=== PATIENT | female | born 1985 | race Caucasian/White ===

== ENCOUNTER 2019-03-19 11:53 | Emergency (ER) | payer MEDICAID ==
[~2019-03-19] VITALS: Ht 162.6 cm; Wt 100.0 kg
[2019-03-19 12:16] VITALS: BP 151/93
[2019-03-19] MEDS ORDERED: LORAZEPAM 0.5MG TABLET PO ONE (15:15)
== END 2019-03-19 15:37 | disposition home or self-care (01) ==
LOC: ER 12:12
DX: F41.9 Anxiety disorder, unspecified (principal); E11.9 Type 2 diabetes mellitus without complications; Z76.5 Malingerer [conscious simulation]
CPT/HCPCS: 99282; 99284

== ENCOUNTER 2019-07-23 22:13 | Emergency (ER) | payer MEDICAID ==
[~2019-07-23] VITALS: Ht 170.2 cm; Wt 90.0 kg
[2019-07-23 22:15] VITALS: BP 110/66
== END 2019-07-24 01:00 | disposition left against medical advice (07) ==
LOC: ER 22:13
DX: Z53.21 Procedure and treatment not carried out due to patient leaving prior to being seen by health care provider (principal)

== ENCOUNTER 2019-07-25 10:22 | Emergency (ER) | payer MEDICAID ==
[~2019-07-25] VITALS: Ht 165.1 cm; Wt 81.0 kg
[2019-07-25] MEDS ORDERED: SODIUM CHLORIDE 0.9% 1,000 ML IV ONE (10:50)
[2019-07-25] MEDS ORDERED: KETOROLAC 30MG/ML VIAL IV STA (10:50)
[2019-07-25] MEDS ORDERED: ONDANSETRON HCL 4MG/2ML INJ IV STA (10:50)
[2019-07-25] MEDS ORDERED: LORAZEPAM 2MG/ML CPJ IV ONE (11:00)
[2019-07-25 11:31] LABS: BASOPHILS % 0.3 % (0.0-2.0); HEMATOCRIT. 34.7 % (36.0-48.0); HEMOGLOBIN. 11.6 g/dL (12.0-16.0); LYMPHOCYTES % 14.2 % (20.0-50.0); MEAN CORPUSCULAR HEMOGLOBIN 27.4 pg (28.0-32.0); MEAN PLATELET VOLUME 7.1 fl (7.4-10.4); MONOCYTES % 3.5 % (2.0-8.0); PLATELET 439 x1000/uL (130-400); RED BLOOD CELL COUNT 4.24 mill/uL (4.2-5.4); RED CELL DISTRIBUTION WIDTH 15.7 % (11.6-14.6)
[2019-07-25 11:39] LABS: CHLORIDE 106 mEq/L (98-107); PROTHROMBIN TIME 10.2 sec (9.6-11.0)
[2019-07-25 11:44] LABS: ETHANOL BLOOD 269 mg/dL
[2019-07-25] MEDS ORDERED: CHLORDIAZEPOXIDE 25MG CAPSULE PO ONE (13:15)
[2019-07-25] MEDS ORDERED: LORAZEPAM 1MG TABLET PO ONE (13:30)
[2019-07-25 15:46] VITALS: BP 156/72
== END 2019-07-25 15:48 | disposition home or self-care (01) ==
LOC: ER 10:22
DX: R10.11 Right upper quadrant pain (principal); F10.129 Alcohol abuse with intoxication, unspecified; Y90.8 Blood alcohol level of 240 mg/100 ml or more; R03.0 Elevated blood-pressure reading, without diagnosis of hypertension
CPT/HCPCS: 36415; 76705; 80053; 80320; 83690; 85025; 85610; 96361; 96374; 96375; 99284; J1885; J2060; J2405; J7030; G0480

== ENCOUNTER 2020-06-05 14:11 | Emergency (ER) | payer MEDICAID ==
[~2020-06-05] VITALS: Ht 165.1 cm; Wt 80.0 kg
[2020-06-05] MEDS ORDERED: SODIUM CHLORIDE 0.9% 1,000 ML IV ONE (14:54)
[2020-06-05 15:25] LABS: BASOPHILS % 0.1 % (0.0-2.0); EOSINOPHILS % 0.1 % (0.0-5.0); HEMATOCRIT. 40.2 % (36.0-48.0); HEMOGLOBIN. 13.6 g/dL (12.0-16.0); LYMPHOCYTES % 21.3 % (20.0-50.0); MEAN CORPUSCULAR HEMOGLOBIN 29.4 pg (28.0-32.0); MEAN CORPUSCULAR VOLUME 86.9 fL (81.0-99.0); MEAN PLATELET VOLUME 6.8 fl (7.4-10.4); NEUTROPHILS % 76.5 % (40.0-76.0); PLATELET 413 x1000/uL (130-400); RED BLOOD CELL COUNT 4.63 mill/uL (4.2-5.4); RED CELL DISTRIBUTION WIDTH 13.4 % (11.6-14.6)
[2020-06-05 15:29] LABS: CHLORIDE 109 mEq/L (98-107)
[2020-06-05 15:43] LABS: ETHANOL BLOOD 379 mg/dL
[2020-06-05 15:49] LABS: HCG SCREEN NEGATIVE
[2020-06-05 16:36] LABS: CLARITY URINE TURBID (CLEAR); COLOR URINE YELLOW (YELLOW); KETONES URINE NEGATIVE (NEGATIVE); LEUKOCYTE ESTERASE URINE TRACE (NEGATIVE); NITRITE URINE NEGATIVE (NEGATIVE); OCCULT BLOOD URINE 2+ (NEGATIVE); PROTEIN URINE TRACE (NEGATIVE); SPECIFIC GRAVITY URINE 1.013 (1.005-1.030)
[2020-06-05 16:52] LABS: *AMPHETAMINES SCREEN URINE NEGATIVE (NEGATIVE)
[2020-06-05 16:53] LABS: *BARBITURATES SCREEN URINE NEGATIVE (NEGATIVE); *BENZODIAZEPINES SCREEN URINE NEGATIVE (NEGATIVE); *COCAINE SCREEN URINE NEGATIVE (NEGATIVE); METHADONE URINE SCREEN NEGATIVE (NEGATIVE); OPIATES URINE SCREEN NEGATIVE (NEGATIVE)
[2020-06-05 16:54] LABS: CANNABINOID URINE SCREEN NEGATIVE (NEGATIVE); PHENCYCLIDINE URINE SCREEN NEGATIVE (NEGATIVE)
[2020-06-05 18:42] VITALS: BP 124/90
== END 2020-06-05 20:05 | disposition home or self-care (01) ==
LOC: ER 14:11
DX: F10.129 Alcohol abuse with intoxication, unspecified (principal); Y90.8 Blood alcohol level of 240 mg/100 ml or more; F41.9 Anxiety disorder, unspecified; E11.9 Type 2 diabetes mellitus without complications
CPT/HCPCS: 36415; 70450; 80053; 80305; 80320; 81003; 84703; 85025; 99284; J7030; G0480

== ENCOUNTER 2022-05-20 07:40 | Inpatient (IN) | payer MEDICAID ==
[2022-05-20] VITALS (27 sets, daily range): BP systolic 109–167; BP diastolic 76–91
[~2022-05-20] VITALS: Ht 170.2 cm; Wt 101.3 kg
[2022-05-20 08:35] LABS: CHLORIDE 94 mEq/L (98-107)
[2022-05-20 09:29] LABS: BASOPHILS % 0.3 % (0.0-2.0); HEMATOCRIT. 35.3 % (36.0-48.0); HEMOGLOBIN. 11.5 g/dL (12.0-16.0); LYMPHOCYTES % 8.9 % (20.0-50.0); MEAN CORPUSCULAR HEMOGLOBIN 24.4 pg (28.0-32.0); MEAN PLATELET VOLUME 7.6 fl (7.4-10.4); MONOCYTES % 3.6 % (2.0-8.0); NEUTROPHILS % 87.2 % (40.0-76.0); PLATELET 569 x1000/uL (130-400); RED BLOOD CELL COUNT 4.71 mill/uL (4.2-5.4); RED CELL DISTRIBUTION WIDTH 18.9 % (11.6-14.6)
[2022-05-20] MEDS ORDERED: LIDOCAINE HCL/PF 1% 2ML VIAL ONE (10:13)
[2022-05-20] MEDS ORDERED: SODIUM CHLORIDE 0.9% 1,000 ML IV ONE ×2 (10:30)
[2022-05-20] MEDS ORDERED: MORPHINE SULFATE 2 MG/ML CPJ (NOT FOR IM USE) IV ONE (10:30)
[2022-05-20] MEDS ORDERED: ONDANSETRON HCL 4MG/2ML INJ IV ONE (10:30)
[2022-05-20] MEDS ORDERED: DIAZEPAM 5 MG/ML 2ML CPJ IV ONE (11:00)
[2022-05-20] MEDS ORDERED: INSULIN REGULAR (HUMULIN R) 300UNITS/3ML VIAL IV ONE (11:00)
[2022-05-20] MEDS ORDERED: CEFTRIAXONE 1 G PREMIX 50 ML IV NR (11:00)
[2022-05-20] MEDS ORDERED: INSULIN REGULAR (DRIP) 100 UNITS in SODIUM CHLORIDE 0.9% 99 ML IV SCH (11:00)
[2022-05-20 11:06] LABS: HCG SCREEN NEGATIVE
[2022-05-20] MEDS ORDERED: DIAZEPAM 5 MG/ML 2ML CPJ IV SCH (11:30)
[2022-05-20] MEDS ORDERED: INSULIN REGULAR 100U/100ML PMX 100 ML IV PRN (11:45)
[2022-05-20] MEDS ORDERED: INSULIN REGULAR 100U/100ML PMX 99 ML IV PRN (11:45)
[2022-05-20] MEDS ORDERED: PIPERACILLIN/TAZOBACTAM 3.375GM/50ML PREMIX IV ONE (12:30)
[2022-05-20] MEDS ORDERED: PIPERACILLIN/TAZ 3.375G PREMIX 50 ML IV NR (12:30)
[2022-05-20] MEDS ORDERED: VANCOMYCIN 1G PREMIX 200 ML IV NR (12:30)
[2022-05-20] MEDS ORDERED: LORAZEPAM 1MG TABLET PO NR (12:30)
[2022-05-20 12:38] LABS: CLARITY URINE CLEAR (CLEAR); COLOR URINE YELLOW (YELLOW); KETONES URINE 2+ (NEGATIVE); LEUKOCYTE ESTERASE URINE NEGATIVE (NEGATIVE); NITRITE URINE NEGATIVE (NEGATIVE); OCCULT BLOOD URINE 3+ (NEGATIVE); PROTEIN URINE NEGATIVE (NEGATIVE); SPECIFIC GRAVITY URINE 1.032 (1.005-1.030); UROBILINOGEN URINE 0.2 E.U./dL (0.2-1.0)
[2022-05-20 12:54] LABS: BG BASE EXCESS -10.9 mmol/L (-2.0-2.0); BG CARBOXYHEMOGLOBIN 0.3 % (0.5-1.5); BG DEOXYHEMOGLOBIN 2.8 % (0.0-5.0); BG FRACTION INSPIRED OXYGEN 21; BG HCO3 ACT 13.2 mmol/L (22.0-26.0); BG METHEMOGLOBIN 0.4 % (0.0-1.5); BG OXYGEN SATURATION 97.2 % (92.0-98.5); BG OXYHEMOGLOBIN 96.5 % (94.0-97.0); BG PCO2 25.2 mmHg (35.0-45.0); BG PH 7.338 (7.350-7.450); BG PO2 101.6 mmHg (75.0-100.0); BG SAMPLE SITE RIGHT RADIAL; BG VENT MODE ROOM AIR
[2022-05-20] MEDS ORDERED: SODIUM CHLORIDE 0.9% 500 ML IV ONE (13:15)
[2022-05-20] MEDS ORDERED: MORPHINE SULFATE 4 MG/ML CPJ (NOT FOR IM USE) IV NR (14:30)
[2022-05-20 14:35] LABS: ETHANOL BLOOD < 10 mg/dL; PHOSPHORUS 2.3 mg/dL (2.5-4.9)
[2022-05-20] MEDS ORDERED: MAGNESIUM 2 G PREMIX 50 ML IV NR ×2 (15:30→18:30)
[2022-05-20] MEDS ORDERED: MAGNESIUM 2 G PREMIX 50 ML IV ONE (17:00)
[2022-05-20] MEDS ORDERED: DEXTROSE 50% WATER 50ML SYRINGE IV PRN ×3 (17:00→21:00)
[2022-05-20] MEDS ORDERED: CEFTRIAXONE 1 G PREMIX 50 ML IV SCH (17:00)
[2022-05-20] MEDS ORDERED: NALOXONE HCL 0.4MG/ML VIAL IV PRN (17:15)
[2022-05-20] MEDS ORDERED: ONDANSETRON HCL 4MG/2ML INJ IV PRN (17:15)
[2022-05-20] MEDS: BLOOD SUGAR DIAGNOSTIC STRIP TEST SCH ×4 (17:28→21:17)
[2022-05-20] MEDS ORDERED: PIPERACILLIN/TAZOBACTAM 3.375 G in DEXTROSE 5% WATER 50 ML IV NR (17:30)
[2022-05-20] MEDS: PANTOPRAZOLE SODIUM 40 MG/VIAL IV SCH (17:34)
[2022-05-20] MEDS: SODIUM CHLORIDE 0.9% 1,000 ML IV SCH ×2 (17:35→21:23)
[2022-05-20] MEDS: MORPHINE SULFATE 2 MG/ML CPJ (NOT FOR IM USE) IV PRN (17:36)
[2022-05-20] MEDS ORDERED: INSULIN REGULAR 100U/100ML PMX 100 ML IV SCH (18:00)
[2022-05-20] MEDS: CEFTRIAXONE 1,000 MG in DEXTROSE 5% WATER 50 ML IV SCH (18:03)
[2022-05-20 18:16] LABS: *AMPHETAMINES SCREEN URINE NEGATIVE (NEGATIVE); *BARBITURATES SCREEN URINE NEGATIVE (NEGATIVE); *BENZODIAZEPINES SCREEN URINE NEGATIVE (NEGATIVE); *COCAINE SCREEN URINE NEGATIVE (NEGATIVE); CANNABINOID URINE SCREEN NEGATIVE (NEGATIVE); METHADONE URINE SCREEN NEGATIVE (NEGATIVE); PHENCYCLIDINE URINE SCREEN NEGATIVE (NEGATIVE)
[2022-05-20 18:18] LABS: OPIATES URINE SCREEN PRESUMTIVE POSITIVE (NEGATIVE)
[2022-05-20] MEDS ORDERED: LORA2TAB95 MT (18:56)
[2022-05-20] MEDS ORDERED: SODIUM PHOS,M-BASIC-D-BASIC 10 MM in DEXT 5% WATER 246.6667 ML IV NR (20:00)
[2022-05-20] MEDS: HALOPERIDOL LACTATE 5MG/ML VIAL IM PRN (20:05)
[2022-05-20 20:29] LABS: CHLORIDE 102 mEq/L (98-107)
[2022-05-20] MEDS ORDERED: POTASSIUM PHOS,M-BASIC-D-BASIC 10 MMOL in DEXT 5% WATER 246.6667 ML IV NR (21:00)
[2022-05-20] MEDS: INSULIN LISPRO 100 UNITS/ML SUBCUT SCH (21:17)
[2022-05-20] MEDS: INSULIN GLARGINE 100 UNITS/ML SUBCUT SCH (22:34)
[2022-05-21] VITALS (39 sets, daily range): BP systolic 131–176; BP diastolic 70–105
[2022-05-21] MEDS: MORPHINE SULFATE 2 MG/ML CPJ (NOT FOR IM USE) IV PRN ×3 (00:27→08:43)
[2022-05-21 05:30] LABS: BASOPHILS % 0.3 % (0.0-2.0); HEMATOCRIT. 29.2 % (36.0-48.0); HEMOGLOBIN. 9.5 g/dL (12.0-16.0); LYMPHOCYTES % 16.7 % (20.0-50.0); MEAN CORPUSCULAR HEMOGLOBIN 24.2 pg (28.0-32.0); MEAN CORPUSCULAR VOLUME 74.6 fL (81.0-99.0); MEAN PLATELET VOLUME 7.6 fl (7.4-10.4); MONOCYTES % 5.2 % (2.0-8.0); NEUTROPHILS % 77.8 % (40.0-76.0); PLATELET 381 x1000/uL (130-400); RED BLOOD CELL COUNT 3.91 mill/uL (4.2-5.4); RED CELL DISTRIBUTION WIDTH 18.4 % (11.6-14.6)
[2022-05-21 05:40] LABS: CHLORIDE 104 mEq/L (98-107)
[2022-05-21 05:50] LABS: PHOSPHORUS 2.4 mg/dL (2.5-4.9)
[2022-05-21] MEDS: SODIUM CHLORIDE 0.9% 1,000 ML IV SCH ×2 (06:40→18:07)
[2022-05-21] MEDS: PANTOPRAZOLE SODIUM 40 MG/VIAL IV SCH (09:13)
[2022-05-21] MEDS: INSULIN GLARGINE 100 UNITS/ML SUBCUT SCH ×2 (10:25→21:19)
[2022-05-21] MEDS: BLOOD SUGAR DIAGNOSTIC STRIP TEST SCH ×3 (11:57→21:00)
[2022-05-21] MEDS: FAMOTIDINE 20MG TABLET PO SCH (12:06)
[2022-05-21] MEDS: INSULIN LISPRO 100 UNITS/ML SUBCUT SCH ×3 (12:07→21:19)
[2022-05-21] MEDS ORDERED: HYDRALAZINE 20MG/ML VIAL IV PRN (12:45)
[2022-05-21] MEDS ORDERED: ACETAMINOPHEN 325MG TABLET PO PRN (13:15)
[2022-05-21] MEDS ORDERED: HYDROCODONE/ACETAMINOPHEN 5/325MG TABLET PO PRN (13:15)
[2022-05-21] MEDS: HYDROCODONE/ACETAMINOPHEN 5/325MG TABLET PO PRN ×2 (13:33→17:55)
[2022-05-21] MEDS ORDERED: POTASSIUM PHOS,M-BASIC-D-BASIC 15 MMOL in DEXT 5% WATER 245 ML IV NR (14:00)
[2022-05-21] MEDS: HALOPERIDOL LACTATE 5MG/ML VIAL IM PRN (15:35)
[2022-05-21] MEDS: CEFTRIAXONE 1,000 MG in DEXTROSE 5% WATER 50 ML IV SCH (17:52)
[2022-05-21] MEDS ORDERED: LORAZEPAM 1MG TABLET PO PRN (19:00)
[2022-05-21] MEDS: LORAZEPAM 1MG TABLET PO PRN (20:30)
[2022-05-22] VITALS (10 sets, daily range): BP systolic 129–175; BP diastolic 68–99
[2022-05-22 05:31] LABS: CHLORIDE 108 mEq/L (98-107)
[2022-05-22 05:39] LABS: PHOSPHORUS 3.3 mg/dL (2.5-4.9)
[2022-05-22] MEDS: SODIUM CHLORIDE 0.9% 1,000 ML IV SCH ×2 (06:03→15:44)
[2022-05-22] MEDS: INSULIN LISPRO 100 UNITS/ML SUBCUT SCH ×3 (06:05→17:58)
[2022-05-22] MEDS: BLOOD SUGAR DIAGNOSTIC STRIP TEST SCH ×3 (06:05→16:40)
[2022-05-22] MEDS ORDERED: POTASSIUM CHLORIDE INJ 40 MEQ in DEXT 5% WATER 500 ML IV ONE ×2 (06:45→07:30)
[2022-05-22] MEDS: LORAZEPAM 1MG TABLET PO PRN ×2 (08:26→15:29)
[2022-05-22] MEDS: FAMOTIDINE 20MG TABLET PO SCH (09:29)
[2022-05-22] MEDS: INSULIN GLARGINE 100 UNITS/ML SUBCUT SCH (09:30)
[2022-05-22] MEDS: KCL 20MEQ/100ML X 2 FOR TOTAL KCL 40MEQ/200ML IV SCH ×2 (10:52→12:34)
[2022-05-22] MEDS ORDERED: AMLODIPINE 2.5MG TABLET PO SCH (11:30)
[2022-05-22] MEDS: HALOPERIDOL LACTATE 5MG/ML VIAL IM PRN (13:32)
== END 2022-05-22 18:15 | disposition left against medical advice (07) | DRG 720 ==
LOC: ER 07:40 → MICUSO 12:37 → ENRESERV 14:57 → 7EST 05-22 07:58
PROVIDERS: ADMIT Internal Medicine; ATTEND Internal Medicine
DX: A41.9 Sepsis, unspecified organism (principal); E11.10 Type 2 diabetes mellitus with ketoacidosis without coma; I10 Essential (primary) hypertension; F41.9 Anxiety disorder, unspecified; F10.10 Alcohol abuse, uncomplicated; Z53.29 Procedure and treatment not carried out because of patient's decision for other reasons; Z59.00 Homelessness unspecified; N39.0 Urinary tract infection, site not specified; I16.0 Hypertensive urgency
CPT/HCPCS: 36415; 36600; 71045; 74176; 80048; 80053; 80305; 80320; 81003; 82010; 82330; 82375; 82805; 82962; 83036; 83605; 83735; 83930; 84100; 84703; 85025; 99291; C9113; J0696; J1630; J1815; J2270; J2405; J2543; J3370; J3475; J3480; J3490; J7030; J7040; J7050; J7060; G0480

== ENCOUNTER 2023-04-25 12:15 | Emergency (ER) | payer MEDICAID ==
[~2023-04-25] VITALS: Ht 162.6 cm; Wt 118.0 kg
[~2023-04-25 12:15] MED LIST: LORA2TAB95 MT
[2023-04-25 12:19] VITALS: BP 132/76; PULSE 133; RESP 18; TEMP 99.1; O2SAT 97
[2023-04-25] MEDS ORDERED: SODIUM CHLORIDE 0.9% 1,000 ML IV ONE (12:45)
== END 2023-04-25 13:52 | disposition left against medical advice (07) ==
LOC: ER 12:15
DX: R00.2 Palpitations (principal); E11.65 Type 2 diabetes mellitus with hyperglycemia; Z00.00 Encounter for general adult medical examination without abnormal findings
CPT/HCPCS: 99283; J7030; 99291

== ENCOUNTER 2023-04-25 16:24 | Emergency (ER) | payer MEDICAID ==
[~2023-04-25] VITALS: Ht 162.6 cm; Wt 75.0 kg
[2023-04-25 16:29] VITALS: BP 134/79; PULSE 143; RESP 18; TEMP 98.4; O2SAT 98
[2023-04-25 17:07] LABS: BASOPHILS % 0.2 % (0.0-2.0); HEMATOCRIT. 36.1 % (36.0-48.0); LYMPHOCYTES % 9.7 % (20.0-50.0); MEAN CORPUSCULAR HEMOGLOBIN 27.2 pg (28.0-32.0); MEAN PLATELET VOLUME 7.4 fl (7.4-10.4); MONOCYTES % 3.7 % (2.0-8.0); NEUTROPHILS % 86.4 % (40.0-76.0); PLATELET 415 x1000/uL (130-400); RED CELL DISTRIBUTION WIDTH 19.3 % (11.6-14.6)
[2023-04-25 17:14] LABS: CHLORIDE 99 mEq/L (98-107)
[2023-04-25 17:17] LABS: HCG SCREEN NEGATIVE
[2023-04-25 17:24] LABS: CREATINE KINASE 245 IU/L (26-192)
[2023-04-25 17:33] LABS: ETHANOL BLOOD 312 mg/dL (-10)
== END 2023-04-25 18:55 | disposition home or self-care (01) ==
LOC: ER 16:24
DX: F41.9 Anxiety disorder, unspecified (principal); E11.65 Type 2 diabetes mellitus with hyperglycemia; T51.0X1A Toxic effect of ethanol, accidental (unintentional), initial encounter; Z00.00 Encounter for general adult medical examination without abnormal findings; Y92.9 Unspecified place or not applicable
CPT/HCPCS: 36415; 80053; 80320; 82140; 82550; 84703; 85025; 99283; G0480

== ENCOUNTER 2024-04-20 06:43 | Emergency (ER) | payer MEDICAID, OTHER ==
[~2024-04-20] VITALS: Ht 165.1 cm; Wt 87.0 kg
[~2024-04-20 06:43] MED LIST changes: +DULA0.75 SQ; +GLIM4TAB36 MT; +METF-874 MT; +SITA50TA3 MT
[2024-04-20 06:51] VITALS: BP 148/87; PULSE 109; RESP 18; TEMP 98; O2SAT 98
[2024-04-20] MEDS ORDERED: ONDANSETRON HCL 4MG/2ML INJ IV STA (06:56)
[2024-04-20] MEDS ORDERED: MORPHINE SULFATE 4 MG/ML INJ (FOR IV/IM USE) IV STA (06:56)
[2024-04-20] MEDS ORDERED: CHLORDIAZEPOXIDE 25MG CAPSULE PO ONE (07:15)
== END 2024-04-20 07:12 | disposition left against medical advice (07) ==
LOC: ER 06:43
DX: R10.9 Unspecified abdominal pain (principal); E11.9 Type 2 diabetes mellitus without complications; Z53.21 Procedure and treatment not carried out due to patient leaving prior to being seen by health care provider
CPT/HCPCS: 99283

== ENCOUNTER 2024-12-18 20:06 | Inpatient (IN) | payer OTHER ==
[~2024-12-18] VITALS: Ht 165.1 cm; Wt 75.3 kg
[~2024-12-18 20:06] MED LIST changes: +FOLI-43 PO; -GLIM4TAB36 MT; +LANTUSUD SUBCUT; +METF-1150 MT; -METF-874 MT; +THIA100T72 PO
[2024-12-18] MEDS ORDERED: FOLIC ACID 1 MG, THIAMINE HCL 100 MG, MVI, ADULT NO.1 10 ML in DEXTROSE 5% WATER 1,000 ML IV ONE (20:45)
[2024-12-18 22:04] LABS: BASOPHILS % 0.8 % (0.0-2.0); EOSINOPHILS % 1.6 % (0.0-5.0); HEMATOCRIT. 32.6 % (36.0-48.0); HEMOGLOBIN. 10.4 g/dL (12.0-16.0); LYMPHOCYTES % 56.1 % (20.0-50.0); MEAN CORPUSCULAR HEMOGLOBIN 26.1 pg (28.0-32.0); MEAN CORPUSCULAR HGB CONC 31.9 g/dL (31.0-37.0); MEAN CORPUSCULAR VOLUME 81.9 fL (81.0-99.0); MEAN PLATELET VOLUME 7.3 fl (7.4-10.4); MONOCYTES % 5.5 % (2.0-8.0); PLATELET 370 x1000/uL (130-400); RED BLOOD CELL COUNT 3.98 mill/uL (4.2-5.4); RED CELL DISTRIBUTION WIDTH 21.4 % (11.6-14.6); WHITE BLOOD COUNT 5.1 x1000/uL (4.5-11.0)
[2024-12-18 22:13] LABS: CHLORIDE 102 mEq/L (98-107); POTASSIUM 4.5 mEq/L (3.5-5.1); SODIUM 140 mEq/L (136-145)
[2024-12-18 22:14] LABS: CALCIUM 8.6 mg/dL (8.7-10.4); CARBON DIOXIDE 24 mEq/L (21-32)
[2024-12-18 22:19] LABS: CREATININE 0.7 mg/dL (0.6-1.0); UREA NITROGEN BLOOD 7 mg/dL (9-23)
[2024-12-18] MEDS: FOLIC ACID 1 MG, THIAMINE HCL 100 MG, MVI, ADULT NO.1 10 ML in DEXT 5%/0.45% NACL 1000M... IV ONE (22:25)
[2024-12-18 22:29] LABS: ETHANOL BLOOD 391 mg/dL (<10)
[2024-12-18 22:33] LABS: GLUCOSE 406 mg/dL (70-105)
[2024-12-19] MEDS: INSULIN LISPRO 100 UNITS/ML SUBCUT ONE (00:19)
[2024-12-19] MEDS: INSULIN LISPRO 100 UNITS/ML SUBCUT NR (00:24)
[2024-12-19 02:00] VITALS: BP 146/78; PULSE 110; RESP 17; TEMP 36.4; TEMP 36.5; O2SAT 99
[2024-12-19] MEDS ORDERED: DEXTROSE 50% WATER 50ML SYRINGE IV PRN (03:45)
[2024-12-19 04:00] VITALS: BP 148/59; PULSE 102; RESP 20; TEMP 36.3; O2SAT 98
[2024-12-19] MEDS: LORAZEPAM 1MG TABLET PO PRN ×2 (04:16→11:04)
[2024-12-19] MEDS: CHLORDIAZEPOXIDE 25MG CAPSULE PO SCH ×2 (05:44→14:48)
[2024-12-19] MEDS: BLOOD SUGAR DIAGNOSTIC STRIP TEST SCH (06:58)
[2024-12-19] MEDS: PANTOPRAZOLE 40MG DR TABLET PO SCH (07:03)
[2024-12-19] MEDS: METFORMIN HCL 500MG TABLET PO SCH (07:03)
[2024-12-19] MEDS: INSULIN LISPRO 100 UNITS/ML SUBCUT SCH (07:15)
[2024-12-19 08:00] VITALS: BP 139/73; PULSE 102; RESP 16; TEMP 36.9; O2SAT 99
[2024-12-19] MEDS: THIAMINE HCL 100MG TABLET PO SCH (09:49)
[2024-12-19] MEDS: MULTIVITAMINS,THER W-MINERALS TABLET PO SCH (09:49)
[2024-12-19] MEDS: FOLIC ACID 1MG TABLET PO SCH (09:49)
[2024-12-19 12:00] VITALS: BP 145/67; PULSE 97; RESP 16; TEMP 36.6; O2SAT 98
[2024-12-19] MEDS: INSULIN GLARGINE 100 UNITS/ML SUBCUT SCH (12:22)
[2024-12-19 18:00] VITALS: BP 155/78; PULSE 90; RESP 16; TEMP 36.8; O2SAT 98
[2024-12-19 20:00] VITALS: BP 130/77; PULSE 84; RESP 18; TEMP 36.4; O2SAT 99
[2024-12-20] VITALS: BP 139/67; PULSE 88; RESP 19; TEMP 36.8; O2SAT 96
[2024-12-20 04:00] VITALS: BP 109/53; PULSE 70; RESP 18; TEMP 37.1; O2SAT 98
[2024-12-20 08:00] VITALS: BP 120/75; PULSE 74; RESP 20; TEMP 36.3; O2SAT 98
[2024-12-20 12:00] VITALS: BP 108/56; PULSE 86; RESP 20; TEMP 36.8; O2SAT 98
[2024-12-20 16:00] VITALS: BP 118/69; PULSE 98; RESP 20; TEMP 36.2; O2SAT 100
[2024-12-20 20:00] VITALS: BP 132/69; PULSE 69; RESP 18; TEMP 36.8; O2SAT 98
[2024-12-21] VITALS: BP 96/50; PULSE 75; RESP 16; TEMP 36.3; O2SAT 98
[2024-12-21 04:00] VITALS: BP 102/52; PULSE 68; RESP 18; TEMP 36.3; O2SAT 98
[2024-12-21] MEDS: FAMOTIDINE 20MG TABLET PO SCH (06:45)
[2024-12-21 08:00] VITALS: BP 100/50; PULSE 65; RESP 16; TEMP 36.4; O2SAT 97
[2024-12-21 09:11] VITALS: BP 100/56; PULSE 65; TEMP 97.5; O2SAT 97
== END 2024-12-21 09:40 | disposition home or self-care (01) | DRG 420 ==
LOC: ER 20:06 → 5WST 21:33 → EDBEDREQ 21:49 → EDBEDREQTM 21:49
PROVIDERS: ADMIT Internal Medicine; ATTEND Internal Medicine
DX: E11.65 Type 2 diabetes mellitus with hyperglycemia (principal); F10.229 Alcohol dependence with intoxication, unspecified; F10.239 Alcohol dependence with withdrawal, unspecified; F15.90 Other stimulant use, unspecified, uncomplicated; F17.210 Nicotine dependence, cigarettes, uncomplicated; I10 Essential (primary) hypertension; F12.90 Cannabis use, unspecified, uncomplicated; Y90.8 Blood alcohol level of 240 mg/100 ml or more; Z91.012 Allergy to eggs
CPT/HCPCS: 36415; 80048; 80320; 82962; 83735; 85025; 99285; A4606; J1815; J3411; J3490; J7070; G0480

== ENCOUNTER 2024-12-23 23:09 | Emergency (ER) | payer OTHER ==
[~2024-12-23] VITALS: Ht 165.1 cm; Wt 82.0 kg
[2024-12-23 23:12] VITALS: O2SAT 100
[2024-12-24] MEDS: SODIUM CHLORIDE 0.9% 1,000 ML IV ONE ×2
[2024-12-24] MEDS: ACETAMINOPHEN 325MG TABLET PO ONE (02:05)
[2024-12-24] MEDS: LORAZEPAM 1MG TABLET PO ONE (02:10)
[2024-12-24 04:22] LABS: BASOPHILS % 0.4 % (0.0-2.0); EOSINOPHILS % 1.8 % (0.0-5.0); HEMATOCRIT. 30.3 % (36.0-48.0); HEMOGLOBIN. 9.8 g/dL (12.0-16.0); LYMPHOCYTES % 42.5 % (20.0-50.0); MEAN CORPUSCULAR HEMOGLOBIN 26.1 pg (28.0-32.0); MEAN CORPUSCULAR HGB CONC 32.5 g/dL (31.0-37.0); MEAN CORPUSCULAR VOLUME 80.3 fL (81.0-99.0); MEAN PLATELET VOLUME 7.1 fl (7.4-10.4); MONOCYTES % 5.7 % (2.0-8.0); NEUTROPHILS % 49.6 % (40.0-76.0); PLATELET 451 x1000/uL (130-400); RED BLOOD CELL COUNT 3.77 mill/uL (4.2-5.4); RED CELL DISTRIBUTION WIDTH 22.2 % (11.6-14.6); WHITE BLOOD COUNT 5.9 x1000/uL (4.5-11.0)
[2024-12-24 04:30] LABS: CHLORIDE 109 mEq/L (98-107); POTASSIUM 3.9 mEq/L (3.5-5.1); SODIUM 147 mEq/L (136-145)
[2024-12-24 04:31] LABS: CARBON DIOXIDE 29 mEq/L (21-32)
[2024-12-24 04:32] LABS: CALCIUM 8.2 mg/dL (8.7-10.4)
[2024-12-24 04:36] LABS: CREATININE 0.7 mg/dL (0.6-1.0)
[2024-12-24 04:37] LABS: ETHANOL BLOOD 250 mg/dL (<10); GLUCOSE 312 mg/dL (70-105); TROPONIN I HIGH SENSITIVITY 8 ng/L (3.0-34); UREA NITROGEN BLOOD 12 mg/dL (9-23)
[2024-12-24 04:38] LABS: ACETAMINOPHEN < 2 ug/mL (10-30)
[2024-12-24 04:39] LABS: DIFFERENTIAL COMMENT 1
[2024-12-24 04:51] LABS: HCG SCREEN NEGATIVE
[2024-12-24 05:08] LABS: BETA HYDROXYBUTYRATE 0.2 mMol/L (0.0-0.3)
[2024-12-24] MEDS ORDERED: METF-416 MT (05:10)
[2024-12-24] MEDS: AZITHROMYCIN 500 MG TABLET PO ONE (05:38)
[2024-12-24] MEDS: CEFTRIAXONE SODIUM 500MG VIAL IM ONE (05:41)
[2024-12-24 06:00] VITALS: TEMP 36.6
[2024-12-24 07:30] VITALS: BP 110/63; PULSE 94; RESP 17; O2SAT 100
== END 2024-12-24 08:45 | disposition home or self-care (01) ==
LOC: ER 23:09
DX: T76.21XA Adult sexual abuse, suspected, initial encounter (principal); E11.65 Type 2 diabetes mellitus with hyperglycemia; Z91.012 Allergy to eggs; F10.20 Alcohol dependence, uncomplicated; R41.82 Altered mental status, unspecified; Z79.84 Long term (current) use of oral hypoglycemic drugs; I10 Essential (primary) hypertension; Y90.9 Presence of alcohol in blood, level not specified; Y92.89 Other specified places as the place of occurrence of the external cause
CPT/HCPCS: 36415; 71045; 99291; 80048; 80307; 82010; 80329; 80320; 82962; 84703; 85025; 84484; 70450; 96360; 96372; J0696; J7030; Z7610; G0480

== ENCOUNTER 2024-12-24 14:47 | Emergency (ER) | payer OTHER ==
[~2024-12-24] VITALS: Ht 162.6 cm; Wt 90.0 kg
[~2024-12-24 14:47] MED LIST changes: +METF-416 MT
[2024-12-24 14:50] VITALS: O2SAT 97
[2024-12-24 17:56] VITALS: O2SAT 99
[2024-12-24 22:00] VITALS: BP 118/70; PULSE 85; RESP 16; TEMP 36.8
== END 2024-12-24 22:53 | disposition home or self-care (01) ==
LOC: ER 14:53
DX: F10.129 Alcohol abuse with intoxication, unspecified (principal); E11.9 Type 2 diabetes mellitus without complications; I10 Essential (primary) hypertension; Z79.84 Long term (current) use of oral hypoglycemic drugs; Y90.9 Presence of alcohol in blood, level not specified
CPT/HCPCS: 99283

== ENCOUNTER 2025-04-23 15:04 | Emergency (ER) | payer OTHER ==
[~2025-04-23] VITALS: Ht 157.5 cm; Wt 82.0 kg
[2025-04-23] MEDS ORDERED: LORAZEPAM 2MG/ML INJ IM ONE (15:15)
[2025-04-23] MEDS: HALOPERIDOL LACTATE 5MG/ML VIAL IM ONE (15:23)
[2025-04-23] MEDS: LORAZEPAM 2MG/ML UD SYRINGE IM SCH (15:23)
[2025-04-23] MEDS: DIPHENHYDRAMINE 50MG/ML VIAL IM ONE (15:23)
[2025-04-23] MEDS: SODIUM CHLORIDE 0.9% 1,000 ML IV ONE ×2 (15:30→18:08)
[2025-04-23] MEDS ORDERED: MIDAZOLAM HCL 2 MG/2 ML VIAL IM ONE (15:45)
[2025-04-23 16:31] LABS: DIFFERENTIAL COMMENT 0; EOSINOPHILS % 0.1 % (0.0-5.0); HEMATOCRIT. 33.8 % (36.0-48.0); HEMOGLOBIN. 10.5 g/dL (12.0-16.0); LYMPHOCYTES % 34.2 % (20.0-50.0); MEAN CORPUSCULAR HEMOGLOBIN 24.9 pg (28.0-32.0); MEAN CORPUSCULAR HGB CONC 31.2 g/dL (31.0-37.0); MONOCYTES % 5.2 % (2.0-8.0); NEUTROPHILS % 59.5 % (40.0-76.0); PLATELET 132 x1000/uL (130-400); RED BLOOD CELL COUNT 4.23 mill/uL (4.2-5.4); RED CELL DISTRIBUTION WIDTH 20.5 % (11.6-14.6); WHITE BLOOD COUNT 5.2 x1000/uL (4.5-11.0)
[2025-04-23 16:37] LABS: CHLORIDE 102 mEq/L (98-107); POTASSIUM 3.5 mEq/L (3.5-5.1); SODIUM 135 mEq/L (136-145)
[2025-04-23 16:38] LABS: CARBON DIOXIDE 20 mEq/L (21-32)
[2025-04-23 16:39] LABS: CALCIUM 8.8 mg/dL (8.7-10.4)
[2025-04-23 16:43] LABS: CREATININE 0.9 mg/dL (0.6-1.0); GLUCOSE 387 mg/dL (70-105); UREA NITROGEN BLOOD 9 mg/dL (9-23)
[2025-04-23 16:45] LABS: ACETAMINOPHEN < 2 ug/mL (10-30)
[2025-04-23 16:53] LABS: ETHANOL BLOOD 307 mg/dL (<10)
[2025-04-23 17:34] LABS: BETA HYDROXYBUTYRATE 0.1 mMol/L (0.0-0.3)
[2025-04-23 18:00] LABS: CLARITY URINE CLOUDY (CLEAR); COLOR URINE YELLOW (YELLOW); GLUCOSE URINE 3+ (NEGATIVE); KETONES URINE NEGATIVE (NEGATIVE); LEUKOCYTE ESTERASE URINE TRACE (NEGATIVE); NITRITE URINE NEGATIVE (NEGATIVE); OCCULT BLOOD URINE TRACE (NEGATIVE); PROTEIN URINE NEGATIVE (NEGATIVE); SPECIFIC GRAVITY URINE 1.013 (1.005-1.030); UROBILINOGEN URINE 0.2 E.U./dL (0.2-1.0)
[2025-04-23 18:18] LABS: BACTERIA URINE 2+; SQUAMOUS EPITHELIAL CELL URINE 1+ /lpf (RARE/1+)
[2025-04-23 18:28] LABS: *AMPHETAMINES SCREEN URINE NEGATIVE (NEGATIVE); *BARBITURATES SCREEN URINE NEGATIVE (NEGATIVE); *BENZODIAZEPINES SCREEN URINE PRESUMPTIVE POSITIVE (NEGATIVE)
[2025-04-23 18:29] LABS: *COCAINE SCREEN URINE NEGATIVE (NEGATIVE); CANNABINOID URINE SCREEN NEGATIVE (NEGATIVE); ECSTASY MDMA SCREEN URINE NEGATIVE (NEGATIVE); METHADONE URINE SCREEN NEGATIVE (NEGATIVE); OPIATES URINE SCREEN NEGATIVE (NEGATIVE); PHENCYCLIDINE URINE SCREEN NEGATIVE (NEGATIVE)
[2025-04-23] MEDS: ZIPRASIDONE MESYLATE 20MG/VIAL IM ONE (18:42)
[2025-04-23] MEDS: MIDAZOLAM HCL 2 MG/2 ML VIAL IM SCH (18:42)
[2025-04-23] MEDS: MIDAZOLAM HCL 2 MG/2 ML VIAL IM ONE (19:55)
[2025-04-23 20:30] VITALS: O2SAT 98
[2025-04-23] MEDS: CEFTRIAXONE 1GM/50ML 50 ML IV ONE (20:45)
[2025-04-23] MEDS: CEFTRIAXONE SODIUM 1G VIAL IM ONE (23:53)
[2025-04-24] MEDS: CHLORDIAZEPOXIDE 25MG CAPSULE PO ONE (09:15)
[2025-04-24 10:18] VITALS: BP 131/73; PULSE 84; RESP 18; TEMP 36.9; O2SAT 98
== END 2025-04-24 10:20 | disposition home or self-care (01) ==
LOC: ER 15:04
DX: R45.851 Suicidal ideations (principal); F10.229 Alcohol dependence with intoxication, unspecified; R45.1 Restlessness and agitation; R41.0 Disorientation, unspecified; E11.9 Type 2 diabetes mellitus without complications; I10 Essential (primary) hypertension; Z20.822 Contact with and (suspected) exposure to COVID-19; Z79.899 Other long term (current) drug therapy; Z79.84 Long term (current) use of oral hypoglycemic drugs; Z91.012 Allergy to eggs; Y90.9 Presence of alcohol in blood, level not specified
CPT/HCPCS: 80305; 80048; 81003; 80307; 82010; 80329; 80320; 82962 ×2; 85025; 36415; 70450; 96360; 96372; 99291; 87426; J0696; J1200; J1630; J2060; J2250; J3486; J7030; Z7610 ×6; G0480

== ENCOUNTER 2025-05-24 18:13 | Emergency (ER) | payer OTHER ==
[~2025-05-24] VITALS: Ht 167.6 cm; Wt 80.0 kg
[~2025-05-24 18:13] MED LIST changes: +ATOR20TA65 PO; +BENA5TAB40 PO; +KEPP500 MT; -LORA2TAB95 MT; +THIA100T88 PO
[2025-05-24 18:19] VITALS: O2SAT 97
[2025-05-24] MEDS: SODIUM CHLORIDE 0.9% 1,000 ML IV ONE (22:11)
[2025-05-24 22:31] LABS: BASOPHILS % 0.6 % (0.0-2.0); EOSINOPHILS % 0.4 % (0.0-5.0); HEMATOCRIT. 30.3 % (36.0-48.0); HEMOGLOBIN. 9.9 g/dL (12.0-16.0); LYMPHOCYTES % 55.3 % (20.0-50.0); MEAN PLATELET VOLUME 7.2 fl (7.4-10.4); MONOCYTES % 5.5 % (2.0-8.0); NEUTROPHILS % 38.2 % (40.0-76.0); PLATELET 382 x1000/uL (130-400); RED BLOOD CELL COUNT 3.94 mill/uL (4.2-5.4); RED CELL DISTRIBUTION WIDTH 25.9 % (11.6-14.6)
[2025-05-24 22:32] LABS: ADD RBC MORPHOLOGY YES
[2025-05-24 22:34] LABS: *AMPHETAMINES SCREEN URINE PRESUMPTIVE POSITIVE (NEGATIVE); *BARBITURATES SCREEN URINE NEGATIVE (NEGATIVE); *BENZODIAZEPINES SCREEN URINE PRESUMPTIVE POSITIVE (NEGATIVE); *COCAINE SCREEN URINE NEGATIVE (NEGATIVE); CANNABINOID URINE SCREEN NEGATIVE (NEGATIVE); ECSTASY MDMA SCREEN URINE NEGATIVE (NEGATIVE); METHADONE URINE SCREEN NEGATIVE (NEGATIVE); OPIATES URINE SCREEN NEGATIVE (NEGATIVE); PHENCYCLIDINE URINE SCREEN NEGATIVE (NEGATIVE)
[2025-05-24 22:43] LABS: CREATININE 0.8 mg/dL (0.6-1.0); UREA NITROGEN BLOOD 20 mg/dL (9-23)
[2025-05-24 22:44] LABS: ETHANOL BLOOD 255 mg/dL (<10); PLATELET ESTIMATE NORMAL
[2025-05-24 22:46] LABS: HCG SCREEN NEGATIVE
[2025-05-25 05:52] VITALS: BP 144/79; PULSE 67; RESP 12; TEMP 36.7; O2SAT 99
== END 2025-05-25 06:43 | disposition home or self-care (01) ==
LOC: ER 18:13 → CANBEDREQ 05-25 05:32 → ER 05-25 06:43
DX: F10.90 Alcohol use, unspecified, uncomplicated (principal); R51.9 Headache, unspecified; E11.9 Type 2 diabetes mellitus without complications; I10 Essential (primary) hypertension; Z79.899 Other long term (current) drug therapy; Z91.012 Allergy to eggs; Z86.59 Personal history of other mental and behavioral disorders; Y90.8 Blood alcohol level of 240 mg/100 ml or more
CPT/HCPCS: 80305; 80048; 81025; 80320; 84703; 85025; 36415; 70450; 96360; 99285; J7030; Z7610; A4606; G0480